=== PATIENT | female | born 1970 | race Caucasian/White ===

== ENCOUNTER 2018-03-13 20:42 | Emergency (ER) | payer OTHER ==
[~2018-03-13] VITALS: Ht 175.3 cm; Wt 125.2 kg
[2018-03-13] MEDS ORDERED: ketorolac trometh inj. 60 MG/2 ML VIAL IM ONE (21:15)
[2018-03-13] MEDS ORDERED: CYCL-1 PO (21:15)
[2018-03-13] MEDS ORDERED: DICL50TA8 PO (21:15)
[2018-03-13 21:41] VITALS: BP 135/89
== END 2018-03-13 21:43 | disposition home or self-care (01) ==
LOC: ER 20:43
DX: M54.5 Low back pain (principal); G89.29 Other chronic pain
CPT/HCPCS: 96372; 99283; J1885

== ENCOUNTER 2025-09-29 08:49 | Emergency (ER) | payer MEDICAID, OTHER ==
[~2025-09-29] VITALS: Ht 172.7 cm; Wt 70.5 kg
[~2025-09-29 08:49] MED LIST: CYCL-1 PO; DICL50TA8 PO
[2025-09-29 08:50] VITALS: BP 142/53; PULSE 81; RESP 16; TEMP 97.6; O2SAT 99
== END 2025-09-29 09:51 | disposition left against medical advice (07) ==
LOC: ER 08:49
DX: J02.9 Acute pharyngitis, unspecified (principal)
CPT/HCPCS: 99281